=== PATIENT | female | born 1990 | race Two or more races ===

== ENCOUNTER 2025-05-04 21:21 | Emergency (ER) | payer MEDICAID, SELFPAY ==
[2025-05-04 21:22] VITALS: BMI 21.0
[2025-05-04 21:44] VITALS: BP 108/53; PULSE 76; RESP 18; TEMP 36.9; O2SAT 99
--- NOTE | 2025-05-04 21:45 | PD.EDRME ---
Rapid Medical Screening Exam RME Arrival date/time: 05/04/25 21:21 This is a case of 34-year-old female with no medical history came into the emergency room due to vaginal spotting bleeding with pelvic cramping patient is 5 weeks persistence of the symptoms this patient decided to start consult here in the emergency room Chief Complaint: Urogenital-Female Time Seen by Provider: 05/04/25 21:45 Vital signs: Vital Signs Temperature 98.4 F 05/04/25 21:44 Pulse Rate 76 05/04/25 21:44 Respiratory Rate 18 05/04/25 21:44 Blood Pressure 108/53 L 05/04/25 21:44 Pulse Oximetry (%) 99 05/04/25 21:44 Oxygen Delivery Method Room Air 05/04/25 21:44
[2025-05-04 22:03] LABS: Basophils # (Auto) 0.0 Thou/mm3 (0.0-0.2); Basophils % (Auto) 0 % (0-2.5); Eosinophils # (Auto) 0.1 Thou/mm3 (0.0-0.5); Eosinophils % (Auto) 2 % (0-10); Hematocrit 31.4 % (36.0-46.0); Hemoglobin 10.0 g/dL (12.0-16.0); Immature Granulocytes Auto 0.02 Thou/mm3 (0.00-0.00); Lymphocytes # (Auto) 1.9 Thou/mm3 (1.0-4.8); Lymphocytes % (Auto) 25 % (10-50); Mean Corpuscular HGB Conc 31.8 g/dl (31.0-37.0); Mean Corpuscular Hemoglobin 23.6 pg (25.0-35.0); Mean Corpuscular Volume 74 fL (80-100); Monocytes # (Auto) 0.4 Thou/mm3 (0.0-0.8); Monocytes % (Auto) 6 % (0-12); Neutrophils # (Auto) 5.0 Thou/mm3 (1.8-7.7); Neutrophils % (Auto) 67 % (37-80); Nucleated Red Blood Cell # 0.00 Thou/mm3 (0.00-0.00); Nucleated Red Blood Cell % 0 /100 WBC (0); Platelet Count 260 Thou/mm3 (140-440); RDW Standard Deviation 37.9 fL (36.4-46.3); Red Blood Count 4.24 Miln/mm3 (4.00-5.20); White Blood Count 7.5 Thou/mm3 (3.6-11.0)
[2025-05-04 22:22] LABS: Collection Type, Urine Voided
[2025-05-04 22:37] LABS: Alanine Aminotransferase 9 U/L (10-49); Albumin, Serum 4.7 gm/dL (3.5-5.0); Albumin/Globulin Ratio 1.7 (1.2-2.2); Alkaline Phosphatase 62 U/L (46-116); Anion Gap 11 (7-16); Aspartate Amino Transferase 17 U/L (0-34); BUN/Creatinine Ratio 15 Ratio (12-20); Bilirubin,Total 0.4 mg/dL (0.3-1.2); Blood Urea Nitrogen 12 mg/dL (9-23); Calcium 9.5 mg/dL (8.3-10.6); Calcium (Corrected) 9.5 mg/dL (8.5-10.1); Carbon Dioxide 24.4 mMol/L (20.0-31.0); Chloride 103 mMol/L (98-107); Creatinine (Component) 0.8 mg/dL (0.6-1.3); Estimated Creatinine Clearance 82.7 mL/min (>60); Globulin 2.7 gm/dL (2.3-3.5); Glucose 127 mg/dL (74-106); Osmolality,Calculated 277 (275-295); Potassium 3.7 mMol/L (3.4-5.1); Sodium 138 mMol/L (136-145); Total Protein 7.4 gm/dL (5.7-8.2); eGFR > 60 See Note
[2025-05-04 22:47] LABS: Bacteria,Urine Rare; Bilirubin,Urine Negative (Negative); Blood,Urine Negative (Negative); Clarity,Urine Clear (Clear/Hazy); Color,Urine Lt-Yellow (Lt Yel-Yel); Glucose, Urine Negative (Negative); Ketones,Urine 1+ (Negative); Leukocyte Esterase,Urine Positive (Negative); Nitrite,Urine Negative (Negative); PH,Urine 5.5 (5.0-7.0); Protein,Urine Negative (Neg - Trace); RBC,Urine 8 /hpf (0-3); Specific Gravity,Urine 1.024 (1.001-1.035); Squamous Epithelial Cell,Urine 14 /hpf (0-5); Urobilinogen,Urine Negative mg/dL (0.0-1.0); WBC,Urine 10 /hpf (0-5)
--- NOTE | 2025-05-04 23:37 | PD.EDPREG ---
ED OB Contraction Preg RMI/HPI General Chief complaint: Urogenital-Female Stated complaint: 5 WKS PREG CRAMPS Time Seen by Provider: 05/04/25 21:45 Arrival date/time: 05/04/25 21:21 RME / HPI RME / HPI Narrative: 05/04/25 21:21 This is a case of 34-year-old female with no medical history came into the emergency room due to vaginal spotting bleeding with pelvic cramping patient is 5 weeks persistence of the symptoms this patient decided to start consult here in the emergency room See [facility] for Dr. Farr's HPI Documentation. Associated symptoms: vaginal bleeding : yes Related Data Allergies Allergy/AdvReac Type Severity Reaction Status Date / Time NKA* Allergy Uncoded 07/21/10 07:32 Review of Systems Review of Systems Systems Reviewed: All systems reviewed, normal except as documented Past Medical History Social History SMOKING STATUS: Never smoker ED Exam Narrative Physical exam: See [facility] for Dr. Farr's Physical Exam Documentation. Course Quality Measures none Orders Category Date Time Status US OB <= 14 weeks fetus Stat Exams 05/05/25 00:00 Taken ABO/RH Type Stat Lab 05/04/25 21:53 Completed Beta HCG,Quantitative Stat Lab 05/04/25 21:53 Completed CBC Stat Lab 05/04/25 21:53 Completed CMP [Comprehensive Metabolic Panel] Stat Lab 05/04/25 21:53 Completed Urinalysis Stat Lab 05/04/25 22:06 Completed Vital Signs Vital signs: Vital Signs Temperature 98.4 F 05/04/25 21:44 Pulse Rate 76 05/04/25 21:44 Respiratory Rate 18 05/04/25 21:44 Blood Pressure 108/53 L 05/04/25 21:44 Pulse Oximetry (%) 99 05/04/25 21:44 Oxygen Delivery Method Room Air 05/04/25 21:44 OB/Uterine Contractions MDM Narrative [facility] Narrative:: This section includes all my notes and documentations, including HPI, PE, and ED course. Pablito Farr MD HPI: 34 y/o 5 week female presents with pelvic cramping and vaginal bleeding. No other complaints. ROS: All negative except as documented in HPI. Physical Exam: General: Alert and oriented. No acute distress when remaining still. Eyes: Conjunctivae and lids clear. ENT: No nasal congestion. Neck: Supple. Heart: RRR. Lungs: No respiratory distress. Good air movement. No rhonchi, wheezing, rales. Abdomen: Soft and nontender. Normal bowel sounds. No distension. No rebound or guarding. Back: No CVA tenderness. Skin: Warm and dry. Neuro: Alert and oriented X 3. I reviewed all diagnostic test results: My review of the US report is: Intrauterine gestation with a single live fetus of mean gestational age 5 weeks and 6 days. Enlarged left ovary with a 5.8 x 6.2 x 5.7 cm cyst. Recommend follow-up. Right ovarian corpus luteal cyst as described. Blood tests and urine tests At this point, diagnoses include: Pelvic pain during Ovarian cyst First trimester Recommended outpatient care. Based on my best medical judgment, made decision no further evaluation or treatment indicated at this time. Patient understands and agrees to the discharge instructions customized and printed, see below. Your hcg ( hormone) level was 45052 today. Follow-up with your OB within the following week for an hCG recheck. Pablito Farr MD Patient data External records reviewed:: [facility] previous records (No prior ED records available for review) Clinical information provided by:: patient Social determinants that could affect healthcare access:: none Patient has the following chronic illnesses:: None reported How is presenting disease/condition affected by chronic disease/condition?: no chronic disease Evaluation data The following diagnostics were reviewed and interpreted by me:: lab results and radiology exam(s) Lab and/or radiology exams considered but not ordered:: None Interpretation Summary: I reviewed all diagnostic test results: My review of the US report is: Intrauterine gestation with a single live fetus of mean gestational age 5 weeks and 6 days. Enlarged left ovary with a 5.8 x 6.2 x 5.7 cm cyst. Recommend follow-up. Right ovarian corpus luteal cyst as described. Blood tests and urine tests Medications / Prescriptions Medications or Prescriptions considered but not ordered:: None Medication administrations:: None Consultations Consultation(s) initiated? (list below): No Diagnosis OB Contractions Differential Diagnosis: hemorrhage, -induced hypertension, premature labor, pre-eclampsia and eclampsia Most likely diagnosis given after review of the tests above:: Pelvic pain during Ovarian cyst First trimester Admission Indicated Admission indicated?: not indicated Explain why admission is indicated or not indicated:: With significant improvement and no condition needing emergent intervention, there was no indication for admission. Admission Request Was there a request for admission?: No Disposition Plan Disposition Plan: Discharge Discharge Attestation Discharge Attestation: The patient and all family members were given an opportunity to ask questions and understood the discharge instructions. Discharge instructions specifically effects, indications for sooner follow up or return to the emergency department, and the expected course of current diagnosis. Patient condition: Stable Discharge Plan Plan Patient Disposition: HOME (Self Care) Patient condition on transfer: Stable Prescriptions/Referrals Referrals: Montez Swain [Primary Care Provider] - In 1 week Problem List Clinical Impression: Pelvic pain during , Ovarian cyst, First trimester Patient/Caregiver Discharge Instructions Education Materials: ED Possible Miscarriage ... Additional Instructions: Your hcg ( hormone) level was [address] today. Follow-up with your OB within the following week for an hCG recheck. Print Language: Citizen Of [place] Stand Alone Forms: Chrystal Award Info., Patient Portal Info Letter PA/YEISON Supervising Physician MARKO/YEISON Supervising Physician: Chika
--- NOTE | 2025-05-05 | XR_ITS ---
Examination: Complete OB ultrasound, less than 14 weeks, transabdominal Date and time of exam: May 05, 2025, 0031 hours INDICATIONS: Pelvic pain beginning 2 days ago Technique: Obstetrical ultrasound images less than 14 weeks performed via transabdominal imaging Findings: A normal shaped single intrauterine gestation is present in the uterus. CRL 0.3 cm corresponds to 5 weeks 6 days gestational age. Cardiac motion 117 bpm Ultrasonographic survey of visible and placental structures unremarkable. Amniotic fluid volume appears appropriate for this estimated gestational age. Right ovary 2.7 cm arterial flow 17 mm cyst Left ovary 6.6 cm arterial flow 5.8 cm x 6.2 cm cyst IMPRESSION: Viable intrauterine gestation 5 weeks 6 days.
--- NOTE | 2025-05-05 00:36 | PD.EDFMALE ---
ED Female Urogenital RME/HPI General Chief complaint: Urogenital-Female Stated complaint: 5 WKS PREG CRAMPS Time Seen by Provider: 05/04/25 21:45 Source: patient, RN notes reviewed and old records reviewed Arrival date/time: 05/04/25 21:21 Mode of arrival: ambulatory Limitations: no limitations RME / HPI RME / HPI Narrative: 34yof approximately 5 weeks gestation presents to ED for generalized pelvic pain/cramping (L>R) that initiated today. Patient denies vaginal bleeding. No fever, nausea/vomiting, dysuria, vaginal discharge or back pain reported. No medications or treatments since symptom onset. LMP 03/26/25. : yes Related Data Allergies Allergy/AdvReac Type Severity Reaction Status Date / Time NKA* Allergy Uncoded 07/21/10 07:32 Review of Systems Review of Systems Systems Reviewed: All systems reviewed, normal except as documented Constitutional Constitutional: Denies chills and Denies fever(s) Gastrointestinal Gastrointestinal: Denies nausea and Denies vomiting Genitourinary Genitourinary: Denies abnormal vaginal bleeding, Denies dysuria, Reports pelvic pain and Denies vaginal discharge Musculoskeletal Musculoskeletal: Denies back pain Past Medical History Surgical History OTHER SURGICAL HX: Denies past surgical history Social History SMOKING STATUS: Never smoker SUBSTANCE USE: does not use ALCOHOL: Never Past Medical History Comments PMH COMMENT: Denies past medical history ED Exam General Limitations: Present no limitations General appearance: Present alert and in no apparent distress Head Head exam: Present atraumatic and normocephalic Eye Eye exam: Present normal appearance, PERRL and EOMI ENT ENT exam: Present normal exam and mucous membranes moist Neck Neck exam: Present normal inspection and full ROM Chest Chest inspection: Present normal inspection and symmetric chest wall rise Respiratory Respiratory exam: Present normal lung sounds bilaterally; Absent respiratory distress Cardiovascular Cardiovascular exam: Present regular rate and normal rhythm Abdominal Exam Abdominal exam: Present soft; Absent distention, tenderness, guarding or rebound Extremities Exam Extremities exam: Present normal inspection and full ROM Neurological Exam Neurological exam: Present alert and oriented X3 Psychiatric Psychiatric exam: Present normal affect and normal mood Skin Skin exam: Present warm, dry, intact and normal color Course Quality Measures none Orders Category Date Time Status US OB <= 14 weeks fetus Stat Exams 05/05/25 00:00 Taken ABO/RH Type Stat Lab 05/04/25 21:53 Completed Beta HCG,Quantitative Stat Lab 05/04/25 21:53 Completed CBC Stat Lab 05/04/25 21:53 Completed CMP [Comprehensive Metabolic Panel] Stat Lab 05/04/25 21:53 Completed Urinalysis Stat Lab 05/04/25 22:06 Completed Vital Signs Vital signs: Vital Signs Temperature 98.4 F 05/04/25 21:44 Pulse Rate 76 05/04/25 21:44 Respiratory Rate 18 05/04/25 21:44 Blood Pressure 108/53 L 05/04/25 21:44 Pulse Oximetry (%) 99 05/04/25 21:44 Oxygen Delivery Method Room Air 05/04/25 21:44 Urogenital - Female MDM Narrative MDM Narrative:: 34yof approximately 5 weeks gestation presents to ED for generalized pelvic pain (L>R) that initiated today. Patient denies vaginal bleeding. No fever, nausea/vomiting, dysuria, vaginal discharge or back pain reported. No medications or treatments since symptom onset. LMP 03/26/25. Patient updated on labs, imaging. Encourage close follow-up with OB. Patient has appointment scheduled for this . Recommended daily prenatals, Tylenol prn pain. Stable for discharge, RTED precautions given. Patient data External records reviewed:: None (No prior visits) Clinical information provided by:: patient Social determinants that could affect healthcare access:: none Patient has the following chronic illnesses:: None How is presenting disease/condition affected by chronic disease/condition?: no chronic disease Evaluation data The following diagnostics were reviewed and interpreted by me:: lab results and radiology exam(s) Lab and/or radiology exams considered but not ordered:: None Interpretation Summary: No leukocytosis Mild anemia, Hgb 10.0 No UTI, UA contaminated hcg 85441 OB ultrasound: Viable IUP per my read Medications / Prescriptions Medications or Prescriptions considered but not ordered:: No antibiotics recommended at this time Medication administrations:: None Consultations Consultation(s) initiated? (list below): No Diagnosis Urogenital Female Differential Diagnosis: other (Pelvic pain in , UTI, threatened miscarriage, ectopic , ovarian cyst, uterine fibroid) Most likely diagnosis given after review of the tests above:: Pelvic pain in , ovarian cyst Admission Indicated Admission indicated?: not indicated Admission Request Was there a request for admission?: No Disposition Plan Disposition Plan: Discharge Discharge Attestation Discharge Attestation: The patient and all family members were given an opportunity to ask questions and understood the discharge instructions. Discharge instructions specifically effects, indications for sooner follow up or return to the emergency department, and the expected course of current diagnosis. Patient condition: Stable Discharge Plan Plan Patient Disposition: HOME (Self Care) Patient condition on transfer: Stable Prescriptions/Referrals Referrals: Montez Swain [Primary Care Provider] - In 1 week Problem List Clinical Impression: Pelvic pain during , Ovarian cyst, First trimester Patient/Caregiver Discharge Instructions Education Materials: ED Possible Miscarriage ... Additional Instructions: Your hcg ( hormone) level was 57537 today. Follow-up with your OB within the following week for an hCG recheck. Print Language: [place] Stand Alone Forms: Chrystal Award Info., Patient Portal Info Letter MARKO/YEISON Supervising Physician MARKO/YEISON Supervising Physician: Chika
--- NOTE | 2025-05-05 03:05 | PRELIM_ITS ---
Obstetric ultrasound (transabdominal) with Doppler. May 05, 2025 at 0031 hours Clinical history: Vaginal bleeding. LMP: 03/26/2025. Beta hCG = 52,718. No prior study is available for comparison. Findings: There is an intrauterine gestation with a single live fetus of mean gestational age 5 weeks and 6 days, crown rump length is 0.3 cm. The yolk sac is demonstrated, measuring 0.4 cm. cardiac activity is present at heart rate of 117 beats per minute. Estimated due date by ultrasound is 12/30/2025. The uterus is anteverted, measuring 8.9 x 4.4 x 6.5 cm. The right ovary measures 2.7 x 2.4 x 2.4 cm and demonstrates a 1.7 x 1.1 x 1.2 cm corpus luteal cyst. The left ovary is enlarged, measuring 6.6 x 6.6 x 6.2 cm and demonstrates a 5.8 x 6.2 x 5.7 cm cyst. Both ovaries demonstrate color flow and spectral waveforms on Doppler evaluation. No evidence of adnexal mass. There is no free fluid in the pelvis. Impression: Intrauterine gestation with a single live fetus of mean gestational age 5 weeks and 6 days. Enlarged left ovary with a 5.8 x 6.2 x 5.7 cm cyst. Recommend follow-up. Right ovarian corpus luteal cyst as described. Report Electronically Signed By: Darwin Nava 05/05/2025 3:04:47 AM [EST]
== END 2025-05-05 02:10 | disposition home or self-care (01) ==
PROVIDERS: Nurse Practitioner Family; Emergency Provider Emergency Medicine; PCP Family Medicine
DX: O34.81 Maternal care for other abnormalities of pelvic organs, first trimester (principal); N83.202 Unspecified ovarian cyst, left side; N83.201 Unspecified ovarian cyst, right side; O26.891 Other specified pregnancy related conditions, first trimester; R10.23 Pelvic and perineal pain bilateral; Z3A.08 8 weeks gestation of pregnancy
CPT/HCPCS: 36415; 76801; 80053; 81001; 84702; 85025; 86900; 86901; 99283

== ENCOUNTER 2025-05-12 08:28 | Emergency (ER) | payer MEDICAID, SELFPAY ==
[2025-05-12 08:42] VITALS: BP 111/69; PULSE 66; RESP 16; TEMP 36.8; O2SAT 100; BMI 21.2
--- NOTE | 2025-05-12 08:48 | XR_ITS ---
Examination: Complete OB ultrasound, less than 14 weeks, transabdominal Date and time of exam: May 12, 2025, 0911 hours INDICATIONS: Vaginal bleeding beginning this morning Technique: Obstetrical ultrasound images less than 14 weeks performed via transabdominal imaging Findings: A normal shaped single intrauterine gestation is present in the uterus. CRL 0.9 cm corresponds to 7 weeks 0 days gestational age Cardiac motion 133 bpm Ultrasonographic survey of visible and placental structures unremarkable. Amniotic fluid volume appears appropriate for this estimated gestational age. Right ovary 4.1 cm arterial flow. Left ovary 2.9 cm arterial flow IMPRESSION: Viable intrauterine gestation 7 weeks 0 days.
--- NOTE | 2025-05-12 08:48 | PD.EDVAGBL ---
ED OB Contraction Preg RMI/HPI General Chief complaint: Vaginal Bleeding Stated complaint: VAGINAL BLEEDING, PREG 6WKS Time Seen by Provider: 05/12/25 08:35 Source: patient Arrival date/time: 05/12/25 08:28 34-year-old female with no known medical history presents to the emergency room with a chief complaint of vaginal bleeding x 2 days. Patient is currently 6 weeks . She is a . Mode of arrival: ambulatory Limitations: no limitations Related Data Previous Rx's ?Medication ?Instructions ?Recorded cephalexin 500 mg capsule 500 mg PO BID 7 days #14 caps 05/12/25 Allergies Allergy/AdvReac Type Severity Reaction Status Date / Time No Known Allergies Allergy Verified 05/12/25 08:30 Review of Systems Review of Systems Systems Reviewed: All systems reviewed, normal except as documented Constitutional Constitutional: Reports system reviewed and no additional complaints, except as documented, Denies fatigue, Denies fever(s), Denies headache(s) and Denies weakness Eyes Eyes: Reports system reviewed and no additional complaints, except as documented, Denies blurry vision and Denies change in vision ENT Ears, Nose, Mouth, and Throat: Reports system reviewed and no additional complaints, except as documented, Denies otalgia, Denies headache(s), Denies nasal congestion, Denies throat swelling and Denies vertigo Cardiovascular Cardiovascular: Reports system reviewed and no additional complaints, except as documented, Denies chest pain, Denies dyspnea and Denies dyspnea on exertion Respiratory Respiratory: Reports system reviewed and no additional complaints, except as documented, Denies chest congestion, Denies cough, Denies dyspnea, Denies dyspnea on exertion and Denies wheezing Gastrointestinal Gastrointestinal: Reports system reviewed and no additional complaints, except as documented, Denies abdominal pain, Denies cramping, Denies nausea and Denies vomiting Genitourinary Genitourinary: Reports system reviewed and no additional complaints, except as documented and Reports abnormal vaginal bleeding Musculoskeletal Musculoskeletal: Reports system reviewed and no additional complaints, except as documented and Denies back pain Integumentary/Breasts Skin/Breast: Reports system reviewed and no additional complaints, except as documented and Denies wounds Neurologic Neurologic: Reports system reviewed and no additional complaints, except as documented, Denies confusion, Denies headache(s), Denies lack of coordination, Denies vertigo and Denies weakness Psychiatric Psychiatric: Reports system reviewed and no additional complaints, except as documented, Denies anxiety, Denies confusion, Denies depression, Denies paranoia, Denies suicidal ideation and Denies tactile hallucinations Endocrine Endocrine: Reports system reviewed and no additional complaints, except as documented and Denies fatigue Hematologic/Lymphatic Hematologic/Lymphatic: Reports system reviewed and no additional complaints, except as documented and Denies lymphadenopathy Allergic/Immunologic Allergic/Immunologic: Reports system reviewed and no additional complaints, except as documented, Denies throat swelling, Denies urticaria and Denies wheezing Past Medical History Social History SMOKING STATUS: Never smoker SUBSTANCE USE: does not use ED Exam General Limitations: Present no limitations General appearance: Present alert and in no apparent distress Head Head exam: Present atraumatic Eye Eye exam: Present normal appearance, PERRL and EOMI ENT ENT exam: Present normal exam, normal oropharynx and mucous membranes moist Neck Neck exam: Present normal inspection, full ROM and trachea midline Chest Chest inspection: Present normal inspection and symmetric chest wall rise Respiratory Respiratory exam: Present normal lung sounds bilaterally Cardiovascular Cardiovascular exam: Present regular rate, normal rhythm and normal heart sounds Abdominal Exam Abdominal exam: Present soft and normal bowel sounds Extremities Exam Extremities exam: Present normal inspection and full ROM Back Exam Back exam: Present normal inspection and full ROM Neurological Exam Neurological exam: Present alert, oriented X3 and CN II-XII intact Psychiatric Psychiatric exam: Present normal affect and normal mood Skin Skin exam: Present warm, dry, intact and normal color Course Quality Measures none Orders Category Date Time Status US OB <= 14 weeks fetus Stat Exams 05/12/25 08:48 Completed ABO/RH Type Stat Lab 05/12/25 09:01 Completed Beta HCG,Quantitative Stat Lab 05/12/25 09:01 Completed CBC Stat Lab 05/12/25 09:01 Completed CMP [Comprehensive Metabolic Panel] Stat Lab 05/12/25 09:01 Completed UA [Urinalysis] Stat Lab 05/12/25 09:10 Completed Vital Signs Vital signs: Vital Signs Temperature 98.2 F 05/12/25 08:42 Pulse Rate 66 05/12/25 08:42 Respiratory Rate 16 05/12/25 08:42 Blood Pressure 111/69 05/12/25 08:42 Pulse Oximetry (%) 100 05/12/25 08:42 Oxygen Delivery Method Room Air 05/12/25 08:42 Vaginal Bleeding MDM Narrative MDM Narrative: 34-year-old female with no known medical history presents to the emergency room with a chief complaint of vaginal bleeding x 2 days. Patient is currently 6 weeks . She is a . Patient is hemodynamically stable and in no apparent distress Physical examination shows a soft nontender abdomen. The patient denies any pelvic pain. Patient states she is having some vaginal bleeding. Ultrasound showed a viable intrauterine gestation at 7 weeks. heart tones at 133 bpm. hCG levels are 155,803. Urinalysis showed a urinary tract infection. Antibiotics are sent to the patient's pharmacy Patient was discharged and educated to follow-up with primary care provider in the next 24 to 48 hours and return to the emergency room for any evidence of worsening signs or symptoms Patient data External records reviewed:: [facility] previous records Clinical information provided by:: patient Social determinants that could affect healthcare access:: none Patient has the following chronic illnesses:: No chronic illness How is presenting disease/condition affected by chronic disease/condition?: no chronic disease Evaluation data The following diagnostics were reviewed and interpreted by me:: lab results and radiology exam(s) Lab and/or radiology exams considered but not ordered:: Labs and radiology exams considered and ordered Interpretation Summary: Ultrasound OB-indings: A normal shaped single intrauterine gestation is present in the uterus. CRL 0.9 cm corresponds to 7 weeks 0 days gestational age Cardiac motion 133 bpm Ultrasonographic survey of visible and placental structures unremarkable. Amniotic fluid volume appears appropriate for this estimated gestational age. Right ovary 4.1 cm arterial flow. Left ovary 2.9 cm arterial flow IMPRESSION: Viable intrauterine gestation 7 weeks 0 days. Medications / Prescriptions Medications or Prescriptions considered but not ordered:: No medication given Medication administrations:: No medication given Consultations Consultation(s) initiated? (list below): No Diagnosis Vaginal Bleeding Differential Diagnosis: threatened , dysfunctional uterine bleeding, incomplete , ectopic without intrauterine , vaginal bleeding and other (UTI) Most likely diagnosis given after review of the tests above:: Vaginal bleeding/UTI Admission Indicated Admission indicated?: not indicated Admission Request Was there a request for admission?: No Disposition Plan Disposition Plan: Discharge Discharge Attestation Discharge Attestation: The patient and all family members were given an opportunity to ask questions and understood the discharge instructions. Discharge instructions specifically effects, indications for sooner follow up or return to the emergency department, and the expected course of current diagnosis. Patient condition: Stable Discharge Plan Plan Patient Disposition: HOME (Self Care) Discharge Disposition comment: Stable Prescriptions/Referrals Prescriptions/Med Rec: New cephalexin 500 mg capsule 500 mg PO BID 7 Days Qty: 14 0RF Referrals: No Primary/Family,Physician [Primary Care Provider] - In 1 week Problem List Clinical Impression: Vaginal bleeding, Urinary tract infection Patient/Caregiver Discharge Instructions Education Materials: ED Dysfunctional Uterine Bleeding, ED CYSTITIS Female Adult Additional Instructions: Please follow-up with your [facility] in the next 24 to 48 hours Your ultrasound shows a in good standing at 7 weeks. Your heart tones are 133 bpm. Your hCG levels are 155,803. Your urinalysis showed a urinary tract infection. Antibiotics are sent to your pharmacy. Please pick them up and take them as indicated For any evidence of worsening signs or symptoms please return to the emergency room immediately Print Language: Setswana Stand Alone Forms: Chrystal Award Info., Patient Portal Info Letter PA/METEOROLOGICAL TECHNICIAN Supervising Physician PA/METEOROLOGICAL TECHNICIAN Supervising Physician: Dr. Brooks
[2025-05-12 09:16] LABS: Collection Type, Urine Clean Catch
[2025-05-12 09:25] LABS: Basophils # (Auto) 0.0 Thou/mm3 (0.0-0.2); Basophils % (Auto) 1 % (0-2.5); Eosinophils # (Auto) 0.1 Thou/mm3 (0.0-0.5); Eosinophils % (Auto) 1 % (0-10); Hematocrit 33.1 % (36.0-46.0); Hemoglobin 10.4 g/dL (12.0-16.0); Immature Granulocytes Auto 0.01 Thou/mm3 (0.00-0.00); Lymphocytes # (Auto) 1.3 Thou/mm3 (1.0-4.8); Lymphocytes % (Auto) 23 % (10-50); Mean Corpuscular HGB Conc 31.4 g/dl (31.0-37.0); Mean Corpuscular Hemoglobin 23.5 pg (25.0-35.0); Mean Corpuscular Volume 75 fL (80-100); Monocytes # (Auto) 0.3 Thou/mm3 (0.0-0.8); Monocytes % (Auto) 6 % (0-12); Neutrophils # (Auto) 3.9 Thou/mm3 (1.8-7.7); Neutrophils % (Auto) 69 % (37-80); Nucleated Red Blood Cell # 0.00 Thou/mm3 (0.00-0.00); Nucleated Red Blood Cell % 0 /100 WBC (0); Platelet Count 272 Thou/mm3 (140-440); RDW Standard Deviation 38.8 fL (36.4-46.3); Red Blood Count 4.43 Miln/mm3 (4.00-5.20); White Blood Count 5.7 Thou/mm3 (3.6-11.0)
[2025-05-12 09:35] LABS: Bacteria,Urine 2+; Bilirubin,Urine Negative (Negative); Blood,Urine 2+ (Negative); Color,Urine Yellow (Lt Yel-Yel); Glucose, Urine Negative (Negative); Hyaline Casts,Urine < 1 /hpf (0-1); Ketones,Urine Negative (Negative); Leukocyte Esterase,Urine Positive (Negative); Nitrite,Urine Negative (Negative); PH,Urine 7.0 (5.0-7.0); Protein,Urine 1+ (Neg - Trace); RBC,Urine 11 /hpf (0-3); Specific Gravity,Urine 1.025 (1.001-1.035); Squamous Epithelial Cell,Urine 17 /hpf (0-5); Urobilinogen,Urine Negative mg/dL (0.0-1.0); WBC,Urine 12 /hpf (0-5)
[2025-05-12 09:37] LABS: Clarity,Urine Hazy (Clear/Hazy)
[2025-05-12 09:46] LABS: Alanine Aminotransferase 7 U/L (10-49); Albumin, Serum 5.1 gm/dL (3.5-5.0); Albumin/Globulin Ratio 1.7 (1.2-2.2); Alkaline Phosphatase 62 U/L (46-116); Anion Gap 12 (7-16); Aspartate Amino Transferase 17 U/L (0-34); BUN/Creatinine Ratio 12 Ratio (12-20); Bilirubin,Total 0.6 mg/dL (0.3-1.2); Blood Urea Nitrogen 7 mg/dL (9-23); Calcium 10.0 mg/dL (8.3-10.6); Calcium (Corrected) 10.0 mg/dL (8.5-10.1); Carbon Dioxide 24.4 mMol/L (20.0-31.0); Chloride 102 mMol/L (98-107); Creatinine (Component) 0.6 mg/dL (0.6-1.3); Estimated Creatinine Clearance 110.3 mL/min (>60); Globulin 3.0 gm/dL (2.3-3.5); Glucose 77 mg/dL (74-106); Osmolality,Calculated 272 (275-295); Potassium 3.6 mMol/L (3.4-5.1); Sodium 138 mMol/L (136-145); Total Protein 8.1 gm/dL (5.7-8.2); eGFR > 60 See Note
== END 2025-05-12 10:48 | disposition home or self-care (01) ==
PROVIDERS: Emergency Provider Nurse Practitioner Family
DX: O20.9 Hemorrhage in early pregnancy, unspecified (principal); Z3A.01 Less than 8 weeks gestation of pregnancy
CPT/HCPCS: 36415; 76801; 80053; 81001; 84702; 85025; 86900; 86901; 99283